=== PATIENT | female | born 1965 | race Caucasian/White ===

== ENCOUNTER → 2017-06-19 | Outpatient (CLI) | payer OTHER | LOC: OD 16:54 | PROVIDERS: ATTEND Family Medicine | DX: E03.9 Hypothyroidism, unspecified (principal) | CPT/HCPCS: 36415; 84443 ==

== ENCOUNTER 2018-03-06 11:21 | Emergency (ER) | payer OTHER ==
--- NOTE | 2018-03-06 11:45 | ER Document Report ---
ED Medical Screen (RME) - General Chief Complaint: Arm Problem Stated Complaint: ARM PAIN Time Seen by Provider: 03/06/18 11:43 Mode of Arrival: Ambulatory Information source: Patient, [facility] Records Notes: 52-year-old female presents with complaint of left sided neck pain and inability to move her left arm. Patient states neck pain started 3 weeks prior to arrival after sleeping on her neck "wrong". Patient states that 1 week ago she was not able to move her left arm. Patient denies arm pain. I have greeted and performed a rapid initial assessment of this patient. A comprehensive ED assessment and evaluation of the patient, analysis of test results and completion of medical decision making process we will be contacted by additional ED providers. General; no acute distress Respiratory; no respiratory distress Musculoskeletal; no obvious deformity of the left upper extremity. Patient unable to abduct her arm. No pain with passive range of motion. TRAVEL OUTSIDE OF THE [place] IN LAST 30 DAYS: No - HPI Onset: Just prior to arrival Onset/Duration: Gradual, Persistent Quality of pain: Throbbing Severity: Mild Associated Symptoms: None Exacerbated by: Denies Relieved by: Denies Similar symptoms previously: No Recently seen / treated by doctor: No - Related Data Smoking: Cigarettes Frequency of alcohol use: None Drug Abuse: None Allergies/Adverse Reactions: No Known Allergies Allergy (Unverified 03/06/18 11:23) Physical Exam - Vital signs Vitals: Temp Pulse Resp BP Pulse Ox 98.5 F 71 18 155/87 H 94 03/06/18 11:26 03/06/18 11:26 03/06/18 11:26 03/06/18 11:26 03/06/18 11:26 Course - Vital Signs Vital signs: Temp Pulse Resp BP Pulse Ox 98.5 F 71 18 155/87 H 94 03/06/18 11:26 03/06/18 11:26 03/06/18 11:26 03/06/18 11:26 03/06/18 11:26 Doctor's Discharge - Discharge Referrals: TERRY HELTON MD [Primary Care Provider] - Follow up as needed
[2018-03-06] MEDS ORDERED: CYCLOBENZAPRINE HCL 10 MG TABLET PO ONE (12:35)
--- NOTE | 2018-03-06 12:39 | ER Document Report ---
ED General - General Chief Complaint: Arm Problem Stated Complaint: ARM PAIN Time Seen by Provider: 03/06/18 11:43 Mode of Arrival: Ambulatory Information source: Patient Notes: 52-year-old female presents the emergency department with complaints of left upper extremity weakness. Patient states that 3 weeks ago she began having left -sided neck pain. She states that the pain radiated down into the left upper extremity. She had some associated numbness and tingling. Patient states that the symptoms resolved. She says that one week ago she woke up again with the neck pain that now she was having left upper extremity weakness. Patient states that at first she was unable to move her left upper extremity completely. She states that over the last few days she has been gradually improving. Patient states that now she is able to flex and extend at the wrist , elbow and shrug her shoulders. Patient is able to abduct the left upper extremity although she is weak. Patient states that she went to her family physician's office today and was sent to the emergency department for imaging. Patient denies a history of strokes. Patient denies any vision changes, speech changes, lower extremity numbness, tingling, weakness. Patient is able to ambulate without difficulty. TRAVEL OUTSIDE OF THE [place] IN LAST 30 DAYS: No - HPI Onset: Other - 1 week ago Onset/Duration: Sudden Quality of pain: No pain Severity: None Pain Level: Denies Associated symptoms: None Exacerbated by: Denies Relieved by: Denies Similar symptoms previously: No Recently seen / treated by doctor: No - Related Data Allergies/Adverse Reactions: milk Allergy (Verified 03/06/18 11:43) Past Medical History - General Information source: Patient, [facility] Records - Social History Smoking Status: Current Some Day Smoker Frequency of alcohol use: None Drug Abuse: None Family History: Reviewed & Not Pertinent Patient has suicidal ideation: No Patient has homicidal ideation: No Pulmonary Medical History: Reports: Hx Bronchitis - 2017 Renal/ Medical History: Denies: Hx Peritoneal Dialysis Past Surgical History: Reports: Hx Hysterectomy, Hx Thyroid Surgery - radiation 1991 Review of Systems - Review of Systems Constitutional: No symptoms reported EENT: No symptoms reported Cardiovascular: No symptoms reported Respiratory: No symptoms reported Gastrointestinal: No symptoms reported Genitourinary: No symptoms reported Musculoskeletal: Muscle pain, Neck pain Skin: No symptoms reported Hematologic/Lymphatic: No symptoms reported Neurological/Psychological: Other - LUE weakness -: Yes All other systems reviewed and negative Physical Exam - Vital signs Vitals: Temp Pulse Resp BP Pulse Ox 98.5 F 71 18 155/87 H 94 03/06/18 11:03/06/18 11:03/06/18 11:03/06/18 11:03/06/18 11:26 - Notes Notes: PHYSICAL EXAMINATION: GENERAL: Well-appearing, well-nourished and in no acute distress. HEAD: Atraumatic, normocephalic. EYES: Pupils equal round and reactive to light, extraocular movements intact, conjunctiva are normal. ENT: Nares patent, oropharynx clear without exudates. Moist mucous membranes. NECK: Normal range of motion, supple without lymphadenopathy. Tenderness to palpation of the Left paracervical muscles and Left trapezius muscle. LUNGS: Breath sounds clear to auscultation bilaterally and equal. No wheezes rales or rhonchi. HEART: Regular rate and rhythm without murmurs ABDOMEN: Soft, nontender, nondistended abdomen. No guarding, no rebound. No masses appreciated. Female : deferred Musculoskeletal: no pitting or edema. No cyanosis. Decreased abduction to the LUE. NEUROLOGICAL: Cranial nerves grossly intact. Normal speech, normal gait. Normal sensory. Weakness to the LUE. PSYCH: Normal mood, normal affect. SKIN: Warm, Dry, normal turgor, no rashes or lesions noted. Course - Re-evaluation Re-evalutation: 03/06/18 14:19 CT head was normal. CT of the cervical spine shows degenerative disc disease, foraminal stenosis, and disc protrusion posteriorly to the left. I discussed the results with the patient. She feels comfortable following up with her primary care physician outpatient for further treatment. Patient instructed to return to the emergency department for any worsening symptoms and to take over- the-counter medication as directed. - Vital Signs Vital signs: Temp Pulse Resp BP Pulse Ox 98.5 F 71 18 155/87 H 94 03/06/18 11:26 03/06/18 11:03/06/18 11:03/06/18 11:03/06/18 11:26 Discharge - Discharge Clinical Impression: DJD (degenerative joint disease) of cervical spine Qualifiers: Spinal osteoarthritis complication: with radiculopathy Qualified Code(s): M47.22 - Other spondylosis with radiculopathy, cervical region Condition: Good Disposition: HOME, SELF-CARE Instructions: Radiculopathy ([facility]) Referrals: TERRY HELTON MD [Primary Care Provider] - Follow up as needed
--- NOTE | 2018-03-06 13:16 | RADIOLOGY REPORT (SQ) ---
EXAM DESCRIPTION: CT HEAD WITHOUT COMPLETED DATE/TIME: 03/06/2018 1:09 pm REASON FOR STUDY: weakness LUE COMPARISON: None. TECHNIQUE: Axial images acquired through the brain without intravenous contrast. Images reviewed wi th bone, brain and subdural windows. Additional sagittal and coronal reconstructions were generated. Images stored on PACS. All CT scanners at this facility use dose modulation, iterative reconstruction, and/or weight based d osing when appropriate to reduce radiation dose to as low as reasonably achievable (ALARA). [facility]: Dose Right [facility]: CareDose [facility]: Dose Right [facility]: Teradose 4D [facility]: Smart Dodreams RADIATION DOSE: CT Rad equipment meets quality standard of care and radiation dose reduction techniq ues were employed. CTDIvol: 53.2 mGy. DLP: 1017 mGy-cm. mGy. LIMITATIONS: None. FINDINGS: VENTRICLES: Normal size and contour. CEREBRUM: No masses. No hemorrhage. No midline shift. No evidence for acute infarction. Normal gra y/white matter differentiation. No areas of low density in the white matter. CEREBELLUM: No masses. No hemorrhage. No alteration of density. No evidence for acute infarction. EXTRAAXIAL SPACES: No fluid collections. No masses. ORBITS AND GLOBE: No intra- or extraconal masses. Normal contour of globe without masses. CALVARIUM: No fracture. PARANASAL SINUSES: No fluid or mucosal thickening. SOFT TISSUES: No mass or hematoma. OTHER: No other significant finding. IMPRESSION: NORMAL BRAIN CT WITHOUT CONTRAST. EVIDENCE OF ACUTE STROKE: NO. COMMENT: Quality ID # [id number]: Final reports with documentation of one or more dose reduction techniques (e.g., Automated exposure control, adjustment of the mA and/or kV according to patient size, use of iterative reconstruction technique) TECHNICAL DOCUMENTATION: JOB ID: [id number]- All Rights Reserved Reading location - IP/workstation name: [email or web address]
--- NOTE | 2018-03-06 13:33 | RADIOLOGY REPORT (SQ) ---
EXAM DESCRIPTION: CT CERVICAL SPINE WITHOUT COMPLETED DATE/TIME: 03/06/2018 1:09 pm REASON FOR STUDY: Weakness left upper extremity with no trauma. COMPARISON: None. TECHNIQUE: Axial images acquired through the cervical spine without intravenous contrast. Images re viewed with lung, soft tissue and bone windows. Reconstructed coronal and sagittal MPR images review ed. Images stored on PACS. All CT scanners at this facility use dose modulation, iterative reconstruction, and/or weight based d osing when appropriate to reduce radiation dose to as low as reasonably achievable (ALARA). [facility]: Dose Right [facility]: CareDose [facility]: Dose Right [facility]: Teradose 4D [facility]: GeoVS RADIATION DOSE: CT Rad equipment meets quality standard of care and radiation dose reduction techniq ues were employed. CTDIvol: 14.6 mGy. DLP: 311 mGy-cm. mGy. LIMITATIONS: None. FINDINGS: ALIGNMENT: Anatomic. MINERALIZATION: Normal. VERTEBRAL BODIES: No fractures or dislocation. DISCS: C1-C2: No abnormality. C2-C3: No abnormality. C3-C4: No abnormality. C4-C5: Cervical spondylosis and degenerative disc disease. There is evidence of eccentric disc protr usion posteriorly to the left (axial image number 39/77 series 3) and (image 27/49 series 200 sagitta l scans). C5-C6: Cervical spondylosis and degenerative disc disease. Foraminal stenosis on the left. C6-C7: Cervical spondylosis and degenerative disc disease. Minimal posterior central disc osteophyte protrusion. Bilateral foraminal stenosis, greatest on the left. C7-T1: No abnormality seen. FACETS, LATERAL MASSES, POSTERIOR ELEMENTS: No fractures. No dislocation. No acute findings. VISUALIZED RIBS: No fractures. LUNG APICES AND SOFT TISSUES: Changes suggestive of centrilobular emphysema. Small nonenlarged cervi amber nodes. IMPRESSION: 1. Evidence of cervical spondylosis and degenerative disc disease at C4-7. 2. At C4-5 , eccentric disc protrusion posteriorly to the left. 3. Changes of bilateral foraminal stenosis gre atest on the left at C6-7 and foraminal stenosis on the left at C5-6. TECHNICAL DOCUMENTATION: JOB ID: [id number] SC-69 Quality ID # [id number]: Final reports with documentation of one or more dose reduction techniques (e.g., Au tomated exposure control, adjustment of the mA and/or kV according to patient size, use of iterative reconstruction technique) 2010 [employer]- All Rights Reserved Reading location - IP/workstation name: [email or web address]
[2018-03-06 15:24] VITALS: BP 146/88
== END 2018-03-06 15:31 | disposition home or self-care (01) ==
LOC: ER 11:21
DX: M47.22 Other spondylosis with radiculopathy, cervical region (principal); F17.200 Nicotine dependence, unspecified, uncomplicated; Z90.710 Acquired absence of both cervix and uterus; Z91.011 Allergy to milk products
CPT/HCPCS: 70450; 72125; 99284